=== PATIENT | male | born 1965 | race Two or more races ===

== ENCOUNTER 2016-11-15 11:55 | Emergency (ER) | payer MEDICAID ==
[~2016-11-15 11:55] MED LIST: ALBU0.5N2 IN; ALPR1TAB2 PO; AMLO5TAB2 PO; ASPI325T4 PO; BENA10TA9; CARI-316; CHOL20007 PO; CITA-77 PO; CLON1TAB3 PO; DULO30CA; ESCI20TA PO; ESCI20TA51 PO; FERR325T83; FLUR30CA12; FLUT50SP13; IPRAAER5; LOR05T PO; MECL-87 PO; METO-516 PO; METO25TA5 PO; MONT10TA23; OMEP20TA51; OXYC325T14; RANI-229 PO; SERT-274; SIMV10TA73 PO; TRAZ50TA2 PO; ZOLP10TA PO
[2016-11-15] MEDS ORDERED: SODIUM BICARBONATE 8.4% INJ 50ML SYRINGE IV ONE (11:56)
[2016-11-15] MEDS ORDERED: EPINEPHrine HCL 1 MG/10 ML SYRG IV ONE (11:56)
[2016-11-15 12:01] VITALS: BP 0/0
== END 2016-11-15 12:32 | disposition expired ==
LOC: ER 11:55 → EDBD 11:55 → ER 12:32
DX: I46.9 Cardiac arrest, cause unspecified (principal); I48.91 Unspecified atrial fibrillation; M19.90 Unspecified osteoarthritis, unspecified site; J44.9 Chronic obstructive pulmonary disease, unspecified; E11.9 Type 2 diabetes mellitus without complications; I11.0 Hypertensive heart disease with heart failure; I50.9 Heart failure, unspecified; K21.9 Gastro-esophageal reflux disease without esophagitis; E78.5 Hyperlipidemia, unspecified; F17.210 Nicotine dependence, cigarettes, uncomplicated; Z90.89 Acquired absence of other organs; Z79.899 Other long term (current) drug therapy
CPT/HCPCS: 31500; 92950; 99291; J0171